=== PATIENT | female | born 1930 | race Two or more races ===

== ENCOUNTER → 2019-11-02 | Emergency (ER) | payer MEDICARE, BC ==
[~2019-11-02] VITALS: Ht 160 cm; Wt 54.4 kg
[~2019-11-02] MED LIST: CEPH-263 PO; IV NORMAL SALINE 1000ML BAG 1,000 ML IV ONE; cefTRIAXone IV Push 1 GM VIAL. IVP ONE
[2019-11-02 21:27] LABS: BILIRUBIN,URINE NEGATIVE (NEG); CLARITY,URINE TURBID; COLOR,URINE YELLOW; NITRITE,URINE NEGATIVE (NEG); PH,URINE 7.5; PROTEIN,URINE 100 mg/dL (NEG-TRACE); UROBILINOGEN,URINE 0.2 mg/dL (0.2 mg/dL)
[2019-11-02 21:38] LABS: BACTERIA,URINE 0 /HPF (0-FEW); RBC,URINE TNTC /HPF (0-2); WBC,URINE TNTC /HPF (0-4)
[2019-11-02 21:54] LABS: BASO % 1 % (0-3); EOS % 1 % (0-3); HEMATOCRIT 36.6 % (36.0-47.0); HEMOGLOBIN 12.5 g/dL (12.0-15.5); LYMPH # 0.8 x10^3/uL (1.0-4.8); LYMPH % 9 % (24-48); MEAN CORPUSCULAR HEMOGLOBIN 30 pg (25-35); MEAN CORPUSCULAR HGB CONC 34 g/dL (31-37); MEAN CORPUSCULAR VOLUME 88 fL (79-100); MONO # 0.5 x10^3/uL (0.0-1.1); MONO % 5 % (0-9); NEUT # 7.9 x10^3/uL (1.8-7.7); NEUT % 85 % (31-73); PLATELET COUNT 335 x10^3/uL (140-400); RED BLOOD COUNT 4.19 x10^6/uL (3.50-5.40); RED CELL DISTRIBUTION WIDTH 13.3 % (11.5-14.5); WHITE BLOOD COUNT 9.2 x10^3/uL (4.0-11.0)
[2019-11-02 22:03] LABS: CALCIUM 8.8 mg/dL (8.5-10.1); CREATININE 0.6 mg/dL (0.6-1.0); GFR 94.3; POTASSIUM 4.3 mmol/L (3.5-5.1)
[2019-11-02 22:08] LABS: ALBUMIN 3.6 g/dL (3.4-5.0); TOTAL BILIRUBIN 0.2 mg/dL (0.2-1.0); TOTAL PROTEIN 7.1 g/dL (6.4-8.2)
[2019-11-02 22:55] LABS: % BANDS 1 % (0-9); % EOS 1 % (0-5); % LYMPHS 5 % (24-48); % MONOS 1 % (0-10); % SEGS 92 % (35-66); PLT ESTIMATE ADEQUATE (ADEQUATE)
--- NOTE | 2019-11-02 23:00 | RAD ---
Examination: CT ABDOMEN PELVIS WO CONTRAST History: Left flank pain, hematuria Comparison/Correlation: 10/24/2008 CT abdomen and pelvis with contrast Findings: Axial images of the abdomen and pelvis were obtained without contrast. Sagittal and coronal reformatted images were provided. Visualized lung bases are clear. Liver, spleen, adrenal glands and pancreas are unremarkable. No radiopaque collecting system calculi are present. Urinary bladder is unremarkable. The gallbladder fossa unremarkable. Large quantity of stool is present in the colon. No bowel obstruction or extraluminal gas. No inflammatory changes about cecum. No enlarged abdominal or pelvic lymph nodes. No ascites or pelvic free fluid. Exaggerated lordosis of the lumbar spine is present. Multilevel degenerative space narrowing is present. Severe L5-S1 disc space narrowing with bony fusion noted. Anterolisthesis of L5 in relation to S1 by greater extent is present. 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 Impression: Large quantity of stool in the colon. No inflammatory findings. No radiopaque collecting system calculi. No collecting system obstruction. Consider further evaluation with CT IVP urogram with contrast if mass is a persistent concern. Bilateral L5 pars interarticularis chronic fractures. Anterolisthesis of L5 in relation to S1 with bony fusion. PQRS Compliance Statement: One or more of the following individualized dose reduction techniques were utilized for this examination: 1. Automated exposure control 2. Adjustment of the mA and/or kV according to patient size 3. Use of iterative reconstruction technique Electronically signed by: Elan Lopes MD (11/02/2019 10:57 PM) [facility]
--- NOTE | 2019-11-02 23:13 | PHYS DOC ---
Past Medical History Past Medical History: Arthritis, Bronchitis, Kidney Stone (MICAELA MIRELES) Past Surgical History: No Surgical History (MICAELA MIRELES) Alcohol Use: None Drug Use: None (MICAELA MIRELES) Attending Signature I have participated in the care of this patient and I have reviewed and agree with all pertinent clinical information above including history, exam, and recommendations. (GRETCHEN QUEEN MD) Adult General Chief Complaint Chief Complaint: FLANK PAIN HPI HPI Patient is a 89 year old F with L flank pain and hematuria. She states she passed a kidney stone years ago but has had no problems since that time. She denies fevers but has noticed urinary frequency. (MICAELA MIRELES) Review of Systems Review of Systems Constitutional: Denies fever or chills [] HENT: Denies nasal congestion or sore throat [] Respiratory: Denies cough or shortness of breath [] Cardiovascular: Denies chest pain GI: Denies abdominal pain, nausea, vomiting, bloody stools or diarrhea [] : Reports urinary frequency, denies dysuria, reports hematuria Musculoskeletal: Reports left flank pain Neurologic: Denies headache, focal weakness or sensory changes [] All other systems were reviewed and found to be within normal limits, except as documented in this note. (MICAELA MIRELES) Current Medications Current Medications Current Medications Medications (Trade) Dose Ordered Sig/Yakelin Start Time Stop Time Status Last Admin Dose Admin Ceftriaxone Sodium (Rocephin) 1 gm 1X ONCE 11/02/19 22:45 11/02/19 22:46 DC 11/02/19 22:44 1 GM Sodium Chloride 1,000 ml @ 1,000 mls/hr 1X ONCE 11/02/19 21:45 11/02/19 22:44 DC 11/02/19 21:45 1,000 MLS/HR (GRETCHEN QUEEN MD) Allergies Allergies Allergies Coded Allergies Type Severity Reaction Last Updated Verified Penicillins Allergy Unknown 11/02/19 Yes codeine Allergy Unknown 11/02/19 Yes pneumococcal vaccine Allergy Unknown 11/02/19 Yes (GRETCHEN QUEEN MD) Physical Exam Physical Exam Constitutional: Well developed, well nourished, no acute distress, non-toxic a ppearance. [] HENT: Normocephalic, atraumatic, bilateral external ears normal, oropharynx normal Neck: Normal range of motion, no tenderness, supple, no stridor. [] Cardiovascular:Heart rate regular rhythm, no murmur [] Lungs & Thorax: Bilateral breath sounds clear to auscultation [] Abdomen: Bowel sounds normal, soft, no tenderness, no masses, no pulsatile masses. [] Skin: Warm, dry, no erythema, no rash. [] Back: No tenderness, no CVA tenderness. Pt is currently pain free Extremities: No tenderness, no cyanosis, no clubbing, ROM intact, no edema. Neurologic: Alert and oriented X 3, normal motor function, normal sensory function, no focal deficits noted. [] Psychologic: Affect normal, judgement normal, mood normal. [] (MICAELA MIRELES) Current Patient Data Vital Signs Vital Signs Date Time Temp Pulse Resp B/P (MAP) Pulse Ox O2 Delivery O2 Flow Rate FiO2 11/02/19 23:45 61 17 163/70 (101) 96 Room Air 11/02/19 21:20 98.6 98.6 (GRETCHEN QUEEN MD) Lab Values Laboratory Tests Test 11/02/19 21:10 11/02/19 21:40 Urine Collection Type Unknown Urine Color Yellow Urine Clarity Turbid Urine pH 7.5 Urine Specific [place] 1.015 Urine Protein 100 mg/dL (NEG-TRACE) Urine Glucose (UA) Negative mg/dL (NEG) Urine Ketones (Stick) Negative mg/dL (NEG) Urine Blood Large (NEG) Urine Nitrite Negative (NEG) Urine Bilirubin Negative (NEG) Urine Urobilinogen Dipstick 0.2 mg/dL (0.2 mg/dL) Urine Leukocyte Esterase Large (NEG) Urine RBC Tntc /HPF (0-2) Urine WBC Tntc /HPF (0-4) Urine Squamous Epithelial Cells None /LPF Urine Bacteria 0 /HPF (0-FEW) White Blood Count 9.2 x10^3/uL (4.0-11.0) Red Blood Count 4.19 x10^6/uL (3.50-5.40) Hemoglobin 12.5 g/dL (12.0-15.5) Hematocrit 36.6 % (36.0-47.0) Mean Corpuscular Volume 88 fL (79-100) Mean Corpuscular Hemoglobin 30 pg (25-35) Mean Corpuscular Hemoglobin Concent 34 g/dL (31-37) Red Cell Distribution Width 13.3 % (11.5-14.5) Platelet Count 335 x10^3/uL (140-400) Neutrophils (%) (Auto) 85 % (31-73) H Lymphocytes (%) (Auto) 9 % (24-48) L Monocytes (%) (Auto) 5 % (0-9) Eosinophils (%) (Auto) 1 % (0-3) Basophils (%) (Auto) 1 % (0-3) Neutrophils # (Auto) 7.9 x10^3/uL (1.8-7.7) H Lymphocytes # (Auto) 0.8 x10^3/uL (1.0-4.8) L Monocytes # (Auto) 0.5 x10^3/uL (0.0-1.1) Eosinophils # (Auto) 0.0 x10^3/uL (0.0-0.7) Basophils # (Auto) 0.0 x10^3/uL (0.0-0.2) Segmented Neutrophils % 92 % (35-66) H Band Neutrophils % 1 % (0-9) Lymphocytes % 5 % (24-48) L Monocytes % 1 % (0-10) Eosinophils % 1 % (0-5) Platelet Estimate Adequate (ADEQUATE) Sodium Level 130 mmol/L (136-145) L Potassium Level 4.3 mmol/L (3.5-5.1) Chloride Level 94 mmol/L (98-107) L Carbon Dioxide Level 27 mmol/L (21-32) Anion Gap 9 (6-14) Blood Urea Nitrogen 13 mg/dL (7-20) Creatinine 0.6 mg/dL (0.6-1.0) Estimated GFR (Cockcroft-Gault) 94.3 BUN/Creatinine Ratio 22 (6-20) H Glucose Level 117 mg/dL (70-99) H Lactic Acid Level 1.4 mmol/L (0.4-2.0) Calcium Level 8.8 mg/dL (8.5-10.1) Total Bilirubin 0.2 mg/dL (0.2-1.0) Aspartate Amino Transferase (AST) 23 U/L (15-37) Alanine Aminotransferase (ALT) 17 U/L (14-59) Alkaline Phosphatase 141 U/L (46-116) H Total Protein 7.1 g/dL (6.4-8.2) Albumin 3.6 g/dL (3.4-5.0) Albumin/Globulin Ratio 1.0 (1.0-1.7) Laboratory Tests 11/02/19 21:40 Laboratory Tests 11/02/19 21:40 Microbiology 11/02/19 Urine Culture - Preliminary, Resulted 11/02/19 Urine Culture Result 1 (MOJGAN) - Preliminary, Resulted (GRETCHEN QUEEN MD) EKG EKG [] (MICAELA MIRELES) Course & Med Decision Making Course & Med Decision Making Pertinent Labs and Imaging studies reviewed. (See chart for details) Pt's urine shows infection. Her CT is reassuring. It does mention that they cannot r/o mass so if symptoms continue recommend imaging with contrast. It also mentions large stool burden and discussed Miralax use with pt. She is currently pain free. Pt's labs and vitals stable. She is allergic to PCN but has taken and tolerated cephalosporins so Rocephin given in ER. Pt will be discharged home at this time and recommend pushing fluids and close f/u with PCP. (MICAELA MIRELES) Dragon Disclaimer Dragon Disclaimer This electronic medical record was generated, in whole or in part, using a voice recognition dictation system. (MICAELA MIRELES) Departure Departure Impression: Primary Impression: Urinary tract infection Disposition: HOME, SELF-CARE Condition: IMPROVED Referrals: MARIO MENDOZA MD (PCP) Patient Instructions: Urinary Tract Infection Additional Instructions: Push fluids and take antibiotic. Recommend Miralax or other stool softner to help move bowels. Follow up with your doctor. Scripts Cephalexin (KEFLEX) 250 Mg Capsule 1 CAP PO TID for 7 Days, #21 CAP 0 Refills Prov: MICAELA MIRELES 11/02/19 MICAELA MIRELES Nov 02, 2019 23:13 GRETCHEN QUEEN MD Nov 05, 2019 18:06
[2019-11-02 23:45] VITALS: BP 163/70
== END ==
LOC: ER 21:07
DX: N39.0 Urinary tract infection, site not specified (principal); Z87.442 Personal history of urinary calculi; Z88.0 Allergy status to penicillin; Z88.5 Allergy status to narcotic agent; Z88.7 Allergy status to serum and vaccine
CPT/HCPCS: 36415; 74176; 80053; 81001; 83605; 85007; 85025; 87086; 96374; 99285; J0696; J7030

== ENCOUNTER 2020-06-05 12:27 | Emergency (ER) | payer MEDICARE, BC ==
[~2020-06-05] VITALS: Ht 160 cm; Wt 54.0 kg
[~2020-06-05 12:27] MED LIST changes: -IV NORMAL SALINE 1000ML BAG 1,000 ML IV ONE; -cefTRIAXone IV Push 1 GM VIAL. IVP ONE
[2020-06-05 13:04] VITALS: BP 148/68
[2020-06-05] MEDS ORDERED: NEOMY/BACITR/POLYMYXIN OINT PACKET. TP ONE (14:30)
[2020-06-05] MEDS ORDERED: MUPI22OI2 TP (14:31)
--- NOTE | 2020-06-05 14:32 | PHYS DOC ---
Past Medical History Past Medical History: Arthritis, Bronchitis, Kidney Stone Past Surgical History: No Surgical History Smoking Status: Never Smoker Alcohol Use: None Drug Use: None General Adult EDM: Chief Complaint: INSECT BITE HPI: HPI: Patient is a 89 year old female who presents the emergency department with complaints of 2 fluid filled blisters to both of her anterior lower legs that have been itching for the last week. Patient states that she found the areas after working in her yard. She states that they are bug bites. She denies any drainage, warmth, or pain at the sites. She denies any fever, cough, shortness of breath, abdominal pain, rash, or swelling of her extremities. She currently denies any pain. Patient states she has been applying some ointment that was previously prescribed her to the areas but requests that the blisters are drained. Review of Systems: Review of Systems: Constitutional: Denies fever or chills. [] HENT: Denies nasal congestion or sore throat. [] Respiratory: Denies cough or shortness of breath. [] GI: Denies abdominal pain, nausea, vomiting Musculoskeletal: Denies joint pain. [] Integument: See HPI Neurologic: Denies focal weakness or sensory changes. [] Psychiatric: Denies depression or anxiety. [] Heart Score: Risk Factors: Risk Factors: DM, Current or recent (<one month) smoker, HTN, HLP, family history of CAD, obesity. Risk Scores: Score 0 - 3: 2.5% MACE over next 6 weeks - Discharge Home Score 4 - 6: 20.3% MACE over next 6 weeks - Admit for Clinical Observation Score 7 - 10: 72.7% MACE over next 6 weeks - Early Invasive Strategies Current Medications: Current Medications Medications (Trade) Dose Ordered Sig/Yakelin Start Time Stop Time Status Last Admin Dose Admin Neomycin/ Polymyxin/ Bacitracin (Triple Antibiotic Ointment) 1 pkt 1X ONCE 06/05/20 14:30 06/05/20 14:31 Allergies: Allergies: Allergies Coded Allergies Type Severity Reaction Last Updated Verified Penicillins Allergy Intermediate 06/05/20 Yes codeine Allergy Intermediate 06/05/20 Yes pneumococcal vaccine Allergy Intermediate 06/05/20 Yes Physical Exam: PE: Constitutional: Well developed, well nourished, no acute distress, non-toxic appearance. [] HENT: Normocephalic, atraumatic, bilateral external ears normal, nose normal. [] Eyes: PERRLA, conjunctiva normal, no discharge. [] Neck: Normal range of motion, no stridor. [] Cardiovascular:Heart rate regular rhythm Lungs & Thorax: Respirations even and unlabored, no retractions, no respiratory distress Skin: Warm, dry; bilateral 1 cm diameter fluid-filled bulla noted to bilateral anterior lower extremities with mild surrounding erythema, no warmth, purulent drainage, or bleeding consistent with allergic reaction to insect bite. Extremities: No cyanosis, ROM intact, no edema. [] Neurologic: Alert and oriented X 3, no focal deficits noted. [] Psychologic: Affect normal, judgement normal, mood normal. [] Current Patient Data: Vital Signs: Vital Signs Date Time Temp Pulse Resp B/P (MAP) Pulse Ox O2 Delivery O2 Flow Rate FiO2 06/05/20 13:04 97.9 68 16 148/68 (94) 92 Room Air 97.9 EKG: EKG: [] Radiology/Procedures: Radiology/Procedures: [] Course & Med Decision Making: Course & Med Decision Making Pertinent Labs and Imaging studies reviewed. (See chart for details) 89-year-old female presents to the emergency department with complaints of insect bites to both of her lower legs and request for drainage of the blisters. I advised the patient that I will not drain the blisters as this will increase the likelihood of the areas becoming infected. Will prescribe mupirocin. Encouraged the patient to apply mupirocin and a clean bandage twice daily to the affected areas. Instructed the patient to use [id number] Benadryl or hydrocortisone cream as needed for itching. Recommend application of warm moist compresses 3 times a day and as needed for discomfort. Follow-up with her primary care doctor next week for reevaluation, return to the ER if symptoms worsen. Patient verbalized an understanding of home care, medications, follow-up, and return to ED instructions and was in agreement with the plan of care. POC was discussed with Dr. Humphrey prior to discharging patient [] Liliane Disclaimer: Dragmago Disclaimer: This electronic medical record was generated, in whole or in part, using a voice recognition dictation system. Departure Departure Impression: Primary Impression: Allergic reaction to insect bite Disposition: HOME, SELF-CARE Condition: STABLE Referrals: AMRIT ROMAN MD (PCP) Patient Instructions: Insect Sting Allergy Additional Instructions: Fill the prescription and use it as directed. You can use [id number] Benadryl cream or hydrocortisone cream for itching. Do not rupture the blisters, they will open on their own. Apply warm moist compresses to the site 3 times a day as discussed. Change the bandage twice daily and as needed. Follow-up with your primary care doctor next week for wound recheck. Return to the emergency room if you develop a fever, increased redness, warmth, or swelling.. Scripts Mupirocin (MUPIROCIN OINTMENT) 22 Gm Oint...g. 1 LEANNE TP BID for WOUND CARE for 7 Days, #1 TUBE 0 Refills Prov: ELIDIA FRASER APRN 06/05/20 Justicifation of Admission Dx: Justifications for Admission: Justification of Admission Dx: N/A ELIDIA FRASER APRN Jun 05, 2020 14:32
== END 2020-06-05 14:38 | disposition home or self-care (01) ==
LOC: ER 12:27
DX: S80.862A Insect bite (nonvenomous), left lower leg, initial encounter (principal); S80.861A Insect bite (nonvenomous), right lower leg, initial encounter; T78.40XA Allergy, unspecified, initial encounter; Z88.0 Allergy status to penicillin; Z88.5 Allergy status to narcotic agent; Z88.7 Allergy status to serum and vaccine; W57.XXXA Bitten or stung by nonvenomous insect and other nonvenomous arthropods, initial encounter; Y93.89 Activity, other specified; Y99.8 Other external cause status; Y92.89 Other specified places as the place of occurrence of the external cause
CPT/HCPCS: 99283

== ENCOUNTER 2020-12-09 21:40 | Emergency (ER) | payer MEDICARE, BC ==
[~2020-12-09] VITALS: Ht 160 cm; Wt 57.0 kg
[~2020-12-09 21:40] MED LIST changes: +DOCU-153 PO; +IBUP-1027 PO; +LEVO75TA5 PO; +LISI20TA18 PO; +MUPI22OI2 TP; +ONDA4TAB12 PO; +OXYC1TAB15 PO; +POLY17PO52 PO
--- NOTE | 2020-12-09 22:43 | RAD ---
Exam: Left forearm 2 views. Left hand 3 views INDICATION: Fall TECHNIQUE: Frontal and lateral views the left forearm. Frontal, lateral and oblique views of the left hand Comparisons: None FINDINGS: Hand: Impacted fractures of the distal radius and ulna. Diffuse osteopenia. Bone mineralization is normal. Joint spaces are well-maintained. Forearm: Bone mineralization is normal. Redemonstration of fractures involving the distal radius and ulna. Dif fuse osteopenia. IMPRESSION: Impacted mildly displaced fractures of the distal radius and ulna. Electronically signed by: Chelle Yañez MD (12/09/2020 10:40 PM) [facility]
[2020-12-09] MEDS ORDERED: LIDOCAINE 2% Multi-Dose 20 ML VIAL. IJ ONE (23:00)
[2020-12-09] MEDS ORDERED: HYDROmorphone 2 MG/ML VIAL IVP ONE (23:00)
[2020-12-09] MEDS ORDERED: CHLORHEXIDINE 0.12% 15 ML MOUTHWASH. SWSP ONE (23:45)
[2020-12-09] MEDS ORDERED: CHLORHEXIDINE 0.12% 15 ML MOUTHWASH. ONE (23:47)
[2020-12-09] MEDS ORDERED: DIPH,PERTUSS(ACELL),TET VAC/PF 0.5 ML SYRINGE. VAX IM ONE (23:55)
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
--- NOTE | 2020-12-10 00:16 | RAD ---
Left wrist x-rays 2 views HISTORY: Postreduction of fracture. FINDINGS: External splinting density. Acute traumatic distal radius fracture with partial reduction o f the distal fracture fragment with persistent dorsal angulation and distraction remaining. Acute tra umatic ulna styloid fracture with partial reduction as well. Carpal bones intact. Osteoarthritis of t he first CMC joint. IMPRESSION: Partial reduction of the fractures as described above. Electronically signed by: Real Zamarripa MD (12/10/2020 12:13 AM) [facility]
[2020-12-10] MEDS ORDERED: ONDANSETRON PF 4 MG/2 ML VIAL. IVP ONE (00:30)
[2020-12-10 03:26] VITALS: BP 136/65
[2020-12-10] MEDS ORDERED: OXYC1TAB15 PO (03:27)
[2020-12-10] MEDS ORDERED: CHLO473M5 MM (05:12)
[2020-12-10] MEDS ORDERED: HYDROcodone/APAP 5/325MG 1 TAB TABLET PO ONE (05:15)
== END 2020-12-10 07:39 | disposition home or self-care (01) ==
LOC: ER 21:40
DX: S52.512A Displaced fracture of left radial styloid process, initial encounter for closed fracture (principal); I10 Essential (primary) hypertension; I95.89 Other hypotension; Z90.710 Acquired absence of both cervix and uterus; Z98.890 Other specified postprocedural states; Z88.0 Allergy status to penicillin; Z88.5 Allergy status to narcotic agent; Z88.7 Allergy status to serum and vaccine; Z88.8 Allergy status to other drugs, medicaments and biological substances; W01.0XXA Fall on same level from slipping, tripping and stumbling without subsequent striking against object, initial encounter; Y93.89 Activity, other specified; Y92.89 Other specified places as the place of occurrence of the external cause; Y99.8 Other external cause status
CPT/HCPCS: 25605; 73090; 73100; 73130; 90471; 90715; 96374; 96375; 99285; J1170; J2405

== ENCOUNTER 2020-12-17 16:09 | Emergency (ER) | payer MEDICARE, BC ==
[~2020-12-17] VITALS: Ht 160 cm; Wt 56.8 kg
[~2020-12-17 16:09] MED LIST changes: +CHLO473M5 MM; +POLY17PO28 PO; -POLY17PO52 PO
[2020-12-17 16:51] VITALS: BP 176/87
[2020-12-17] MEDS ORDERED: MORPHINE SULFATE 10 MG/ML VIAL. IM ONE (17:45)
[2020-12-17] MEDS ORDERED: OXYC1TAB15 PO (19:14)
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
== END 2020-12-17 19:30 | disposition home or self-care (01) ==
LOC: ER 16:09
DX: S52.602A Unspecified fracture of lower end of left ulna, initial encounter for closed fracture (principal); I10 Essential (primary) hypertension; Z88.0 Allergy status to penicillin; Z88.5 Allergy status to narcotic agent; Z88.7 Allergy status to serum and vaccine; Z91.018 Allergy to other foods; X58.XXXA Exposure to other specified factors, initial encounter; Y93.89 Activity, other specified; Y92.89 Other specified places as the place of occurrence of the external cause; Y99.8 Other external cause status
CPT/HCPCS: 29125; 96372; 99284; J2270